=== PATIENT | female | born 1995 | race Caucasian/White ===

== ENCOUNTER 2018-07-11 05:22 | Inpatient (IN) ==
[2018-07-11] MEDS ORDERED: Sodium Chlor 0.9% Inj 500 ML IV.SIG PRN (05:50)
[2018-07-11] MEDS ORDERED: Naloxone Inj 0.4 MG/ML Vial IV.PUSH PRN ×2 (05:50→18:53)
[2018-07-11] MEDS ORDERED: Sod Chloride 0.9% Inj 1,000 ML IV.CONT PRN (05:50)
[2018-07-11] MEDS ORDERED: Oxytocin 30 Units/500ml Premix 30 UNITS/500 ML BAG IV.SIG ONE (05:50)
[2018-07-11] MEDS ORDERED: fentaNYL Citrate Inj 100 MCG/2 ML Ampul IV.PUSH PRN ×2 (05:50)
[2018-07-11] MEDS ORDERED: Oxytocin 30 Units/500ml Premix 30 UNITS/500 ML BAG IV.SIG PRN (06:13)
[2018-07-11 06:21] LABS: Baso % (Auto) 0.5 % (0.0-2.0); Eos # (Auto) 0.1 th/mm3 (0.0-0.4); Eos % (Auto) 0.6 % (0.0-4.0); Hematocrit 39.4 % (35.0-46.0); Lymph # (Auto) 2.5 th/mm3 (1.0-4.8); Lymph % (Auto) 23.2 % (9.0-44.0); Mean Corpuscular Hemoglobin 27.8 pg (27.0-34.0); Mean Corpuscular Volume 84.3 fL (80.0-100.0); Mean Platelet Volume 8.9 fL (7.0-11.0); Mono # (Auto) 0.7 th/mm3 (0.0-0.9); Neut # (Auto) 7.6 th/mm3 (1.8-7.7); Neut % (Auto) 69.7 % (16.0-70.0); Platelet Count 260 th/mm3 (150-450); Red Blood Count 4.67 mil/mm3 (4.00-5.30); Red Cell Distribution Width 14.7 % (11.6-17.2); White Blood Count 10.9 th/mm3 (4.0-11.0)
[2018-07-11 06:28] LABS: Amphetamine Urine With Conf Neg (Neg); Benzodiazepine Urine With Conf Neg (Neg)
[2018-07-11 06:32] LABS: Bilirubin,Urine Negative (Negative); Clarity,Urine Clear (Clear); Color,Urine Straw (Yellw/Straw); Glucose,Urine (UA) Negative (Negative); Leukocyte Esterase,Urine Negative (Negative); Mucus,Urine Few /lpf (Occasional); Nitrite,Urine Negative (Negative); Specific Gravity,Urine 1.004 (1.002-1.035); Squamous Epithelial Cell,Urine 1 /hpf (0-5)
[2018-07-11] MEDS ORDERED: fentaNYL 2MCG-Bupiv 0.125% Epi 150 ML EPIDURAL ONE (09:01)
[2018-07-11] MEDS ORDERED: Lidocaaine 1.5%/Epinephrine 1:200,000 PF Inj 5 ML Amp ONE (09:19)
[2018-07-11] MEDS ORDERED: Lidocaine PF 1% Inj 5 ML Vial ONE (09:19)
[2018-07-11] MEDS ORDERED: fentaNYL Citrate Inj 100 MCG/2 ML Ampul EPIDURAL ONE (13:01)
[2018-07-11] MEDS ORDERED: fentaNYL 2MCG-Bupiv 0.125% Epi 150 ML EPIDURAL PRN (13:01)
[2018-07-11] MEDS ORDERED: Measles/Mumps/Rubella Vaccine Inj 0.5 ML Vial SQ ONE (16:00)
[2018-07-11] MEDS ORDERED: Diphtheria/Tetanus/Pertussis Vaccine Inj 0.5 ML Syringe IM ONE (16:00)
[2018-07-11] MEDS ORDERED: Acetaminophen 325 MG Tablet PO PRN (18:53)
[2018-07-11] MEDS ORDERED: Benzocaine 20% Top Spray 60 ML Can TOPICAL PRN (18:53)
[2018-07-11] MEDS ORDERED: Oxytocin 30 Units/500ml Premix 30 UNITS/500 ML BAG IV.CONT PRN (18:53)
[2018-07-11] MEDS ORDERED: Bisacodyl 10 MG Supp RECTAL PRN (18:53)
[2018-07-11] MEDS ORDERED: Zolpidem Tartrate 5 MG Tablet PO PRN (18:53)
[2018-07-11] MEDS ORDERED: Witch Hazel 50%/Glyderin 12.5% 40 Pad Jar RECTAL PRN (18:53)
--- NOTE | 2018-07-11 18:56 | P.OBDELI ---
Patient Started Active Labor: No Medical Induction of Labor: Yes Artificial Rupture of Membrane: Yes Anesthesia: Epidural Episiotomy: midline Vaginal Delivery: Normal Presentation: Occiput anterior Nuchal Cord: None Delayed Cord Clamping (45 sec): Yes Placenta: Spontaneous delivery, Intact, 3 vessel cord Laceration: Episiotomy, 2 deg Repair: Chromic interrupted, Chromic running Estimated blood loss (mL): 300 : Female
[2018-07-11] MEDS: Senna/Docusate Sodium 8.6/50 MG Tablet PO SCH (22:53)
[2018-07-12 08:53] VITALS: O2SAT 98
[2018-07-12] MEDS: Prenatal Vit/Ca/Iron/Folic Acid Tablet PO SCH (10:22)
[2018-07-12] MEDS: Senna/Docusate Sodium 8.6/50 MG Tablet PO SCH ×2 (10:22→21:42)
--- NOTE | 2018-07-12 12:08 | P.PNOB ---
Subjective Post day: 1 Objective Vital Signs/I&O: Vital Signs 07/11/18 12:10 07/11/18 12:25 07/11/18 12:40 Temperature Pulse Rate 82 98 H 95 H Respiratory Rate Blood Pressure 99/78 L 111/77 Pulse Oximetry 07/11/18 12:55 07/11/18 12:56 07/11/18 13:15 Temperature 97.6 F Pulse Rate 86 89 Respiratory Rate 16 16 Blood Pressure 96/52 L 103/71 Pulse Oximetry 07/11/18 13:27 07/11/18 13:30 07/11/18 13:42 Temperature Pulse Rate 85 97 H Respiratory Rate 16 16 Blood Pressure 105/72 110/83 Pulse Oximetry 07/11/18 14:05 07/11/18 14:08 07/11/18 14:25 Temperature Pulse Rate 91 H 90 Respiratory Rate 16 Blood Pressure 98/56 L 126/82 Pulse Oximetry 07/11/18 14:38 07/11/18 15:00 07/11/18 15:10 Temperature 97.9 F Pulse Rate 96 H 83 80 Respiratory Rate 16 16 Blood Pressure 132/65 117/75 109/64 Pulse Oximetry 07/11/18 15:25 07/11/18 15:26 07/11/18 15:30 Temperature 97.9 F Pulse Rate 80 85 Respiratory Rate 16 Blood Pressure 119/68 100/64 Pulse Oximetry 07/11/18 15:40 07/11/18 15:50 07/11/18 16:00 Temperature Pulse Rate 84 88 Respiratory Rate 16 Blood Pressure 116/75 120/74 Pulse Oximetry 07/11/18 16:10 07/11/18 16:25 07/11/18 16:30 Temperature Pulse Rate 90 77 Respiratory Rate 18 Blood Pressure 113/60 109/56 L Pulse Oximetry 07/11/18 17:00 07/11/18 17:10 07/11/18 17:15 Temperature 98.2 F Pulse Rate 96 H 93 H Respiratory Rate 18 18 Blood Pressure 119/67 116/89 Pulse Oximetry 07/11/18 17:25 07/11/18 17:40 07/11/18 17:45 Temperature Pulse Rate 85 98 H Respiratory Rate 18 Blood Pressure 117/63 102/53 L Pulse Oximetry 07/11/18 18:01 07/11/18 18:15 07/11/18 18:55 Temperature 99.1 F Pulse Rate 104 H 107 H Respiratory Rate 18 18 Blood Pressure 172/105 H 113/47 L Pulse Oximetry 07/11/18 19:00 07/11/18 19:10 07/11/18 19:16 Temperature Pulse Rate 102 H 130 H Respiratory Rate 18 Blood Pressure 108/66 112/42 L Pulse Oximetry 07/11/18 20:02 07/11/18 20:08 07/11/18 20:55 Temperature 97.8 F Pulse Rate 78 77 Respiratory Rate 18 18 Blood Pressure 117/75 125/69 Pulse Oximetry 07/12/18 08:20 07/12/18 08:50 Temperature 97.8 F 97.8 F Pulse Rate 78 78 Respiratory Rate 22 22 Blood Pressure 108/70 108/70 Pulse Oximetry 98 Intake & Output 07/11/18 07/12/18 07/12/18 18:59 06:59 18:59 Intake Total 1999 Balance 1999 Intake: IV 1999 LR 1000 mL Inj 1,000 ML @ 125 1000 / 1000 mls/hr IV.CONT .Q8H MICKIE Rx#: [id number] LR 1000 mL Inj 1,000 ML @ 3000 1000 / 1000 mls/hr IV.SIG UNSCH PRN Rx#: [id number] Result Diagrams: 07/11/18 06:03 Objective Remarks: GENERAL: Well-nourished, well-developed patient. CARDIOVASCULAR: Regular rate and rhythm without murmurs, gallops, or rubs. RESPIRATORY: Breath sounds equal bilaterally. No accessory muscle use. ABDOMEN/GI: Abdomen soft, non-tender. Fundus: Firm, non-tender at umbilicus. GENITOURINARY: Light to moderate bleeding. EXTREMITIES: No cyanosis or edema, non-tender, without signs of DVT. Medications and IVs: Active Medications Acetaminophen (Tylenol) 650 mg PO Q4H PRN PRN Reason: PAIN SCALE 1 TO 2 Al Hydroxide/Mg Hydroxide (Milk Of Magnesia Liq) 30 ml PO Q12H PRN PRN Reason: Mild Constipation Benzocaine (Americaine 20% Top [place]) 1 spray TOPICAL Q4H PRN PRN Reason: For Perineum Discomfort Last Admin: 07/11/18 22:53 Dose: 1 spray Bisacodyl (Dulcolax Supp) 10 mg RECTAL DAILY PRN PRN Reason: SEVERE CONSITIPATION Ephedrine Sulfate (Ephedrine/Ns Syringe) 10 mg IV.PUSH UNSCH PRN PRN Reason: SEE LABEL COMMENTS Stop: 07/12/18 13:01 Fentanyl Citrate (Fentanyl Inj) 100 mcg IV.PUSH Q1H PRN PRN Reason: PAIN SCALE 6 TO 10 Fentanyl Citrate (Fentanyl Inj) 50 mcg IV.PUSH Q1H PRN PRN Reason: Pain Scale 3 - 5 Lactated Ringer's (Lr 1000 Ml Inj) 1,000 mls @ 125 mls/hr IV.CONT .Q8H MICKIE Last Admin: 07/11/18 19:14 Dose: Not Given Lactated Ringer's (Lr 1000 Ml Inj) 1,000 mls @ 3,000 mls/hr IV.SIG UNSCH PRN PRN Reason: compromise or epidural Last Admin: 07/11/18 15:28 Dose: 3,000 mls/hr Sodium Chloride (Ns Inj) 500 mls @ 1,000 mls/hr IV.SIG UNSCH PRN PRN Reason: SEE LABEL COMMENTS Sodium Chloride (Ns Inj) 1,000 mls @ 100 mls/hr IV.CONT .Q10H PRN PRN Reason: SEE LABEL COMMENTS Oxytocin (Pitocin 30 Units/Ns 500 Ml Premix) 30 units in 500 mls @ 2 mls/hr IV.SIG TITRATE PRN; Protocol PRN Reason: For induction of labor Last Admin: 07/11/18 06:19 Dose: 2 milliunit/min, 2 mls/hr Fentanyl/Bupivacaine/Sodium Chlor (Fentanyl 2 Mcg-Bupiv 0.125% Epi) 150 mls @ 10 mls/hr EPIDURAL PRN PRN PRN Reason: for Labor Pain Oxytocin (Pitocin 30 Units/Ns 500 Ml Premix) 30 units in 500 mls @ 100 mls/hr IV.CONT UNSCH PRN PRN Reason: Heavy bleeding Ibuprofen (Motrin) 800 mg PO Q8H PRN PRN Reason: For Cramping Last Admin: 07/12/18 10:22 Dose: 800 mg Lactulose (Lactulose Liq) 30 ml PO DAILY PRN PRN Reason: SEVERE CONSITIPATION Lidocaine HCl (Xylocaine 1% Inj) 0.1 ml I-DERMAL PRN PRN PRN Reason: For IV start Stop: 07/14/18 05:49 Lidocaine HCl (Xylocaine 1% Inj) 10 ml INFILTRATN PRN PRN PRN Reason: For episiotomy repair Stop: 07/13/18 05:49 Mineral Oil (Muri-Lube Oil) 10 ml TOPICAL PRN PRN PRN Reason: PRN perineal massage Miscellaneous Information (Misc Information) 1 each OTHER UNSCH PRN PRN Reason: SEE LABEL COMMENTS Stop: 07/12/18 13:01 Miscellaneous Information (Misc Information) 1 each OTHER UNSCH PRN PRN Reason: SEE LABEL COMMENTS Stop: 07/12/18 13:01 Naloxone HCl (Narcan Inj) 0.1 mg IV.PUSH Q2M PRN PRN Reason: for opiate reversal Naloxone HCl (Narcan Inj) 0.1 mg IV.PUSH Q2M PRN PRN Reason: for opiate reversal Ondansetron HCl (Zofran Inj) 4 mg IV.PUSH Q6H PRN PRN Reason: NAUSEA OR VOMITING Ondansetron HCl (Zofran Odt) 4 mg PO Q6H PRN PRN Reason: NAUSEA OR VOMITING Oxycodone/Acetaminophen (Percocet 5/325 Mg) 1 tab PO Q4H PRN PRN Reason: PAIN SCALE 3 TO 5 Oxycodone/Acetaminophen (Percocet 5/325 Mg) 2 tab PO Q4H PRN PRN Reason: PAIN SCALE 6 TO 10 Vit/Calcium/Iron/Folic Ac (Stuartnatal Plus 3) 1 tab PO DAILY [facility] Last Admin: 07/12/18 10:22 Dose: 1 tab Senna/Docusate Sodium (Maria Luz-Colace) 1 tab PO BID [facility] Last Admin: 07/12/18 10:22 Dose: 1 tab Sennosides (Senokot) 17.2 mg PO Q12H PRN PRN Reason: Moderate Constipation Sodium Chloride (Ns Flush) 2 ml IV.FLUSH BID [facility] Last Admin: 07/11/18 23:54 Dose: Not Given Sodium Chloride (Ns Flush) 2 ml IV.FLUSH PRN PRN PRN Reason: FLUSH AFTER USING IV ACCESS Witch Svetlana/Glycerin (Tucks Pads) 1 applicatio RECTAL QID PRN PRN Reason: HEMORRHOIDS Last Admin: 07/11/18 22:53 Dose: 1 applicatio Zolpidem Tartrate (Ambien) 5 mg PO HS PRN PRN Reason: SLEEP Assessment and Plan - Plan PPD # 1 s/p doing well, good pain control, breast feeding going well routine pp care
[2018-07-12 21:49] VITALS: RESP 20
[2018-07-13 07:39] VITALS: BP 98/76; PULSE 67; TEMP 97.5
[2018-07-13] MEDS: Senna/Docusate Sodium 8.6/50 MG Tablet PO SCH (11:34)
[2018-07-13] MEDS: Prenatal Vit/Ca/Iron/Folic Acid Tablet PO SCH (11:35)
== END 2018-07-13 14:40 | disposition home or self-care (01) ==
LOC: H2E 05:22 → H1EA 20:35
PROVIDERS: ADMIT Obstetrics & Gynecology; ATTEND Obstetrics & Gynecology